=== PATIENT | female | born 1960 | race Caucasian/White ===

== ENCOUNTER 2020-10-27 10:19 | Outpatient (CLI) | payer BC | END 2020-10-27 10:20 | disposition home or self-care (01) | LOC: CSHMRI 10:19 | PROVIDERS: ATTEND Student in an Organized Health Care Education/Training Program | DX: H90.5 Unspecified sensorineural hearing loss (principal); H83.01 Labyrinthitis, right ear | CPT/HCPCS: 70553 ==